=== PATIENT | female | born 1965 | race Caucasian/White ===

== ENCOUNTER → 2016-10-10 | Outpatient (CLI) | payer BC ==
[~2016-10-10] VITALS: Ht 174 cm; Wt 78.9 kg
== END ==
LOC: OPSV 14:30
DX: D50.9 Iron deficiency anemia, unspecified (principal)
CPT/HCPCS: 96365; J1756; J7050

== ENCOUNTER → 2016-10-11 | Outpatient (CLI) | payer BC ==
[~2016-10-11] VITALS: Ht 174 cm; Wt 78.9 kg
== END ==
LOC: OPSV 13:30
DX: D50.9 Iron deficiency anemia, unspecified (principal)
CPT/HCPCS: 96365; J1756; J7050

== ENCOUNTER → 2016-10-12 | Outpatient (CLI) | payer BC ==
[~2016-10-12] VITALS: Ht 172.7 cm; Wt 78.9 kg
== END ==
LOC: OPSV 14:00
DX: D50.9 Iron deficiency anemia, unspecified (principal); Z88.0 Allergy status to penicillin; Z88.5 Allergy status to narcotic agent
CPT/HCPCS: 96365; J1756; J7050

== ENCOUNTER → 2016-10-23 | Outpatient (CLI) | payer BC | LOC: OPSV 14:03 | DX: E86.0 Dehydration (principal) | CPT/HCPCS: 96360; 96361; J7120 ==

== ENCOUNTER → 2016-12-25 | Outpatient (CLI) | payer BC | LOC: RAD 11:19 | DX: M54.5 Low back pain (principal); R10.9 Unspecified abdominal pain; E86.0 Dehydration; M47.896 Other spondylosis, lumbar region; K59.00 Constipation, unspecified | CPT/HCPCS: 72110; 74022; 96360; 96361 ==

== ENCOUNTER → 2020-06-29 | Outpatient (CLI) | payer BC | LOC: OPSV 06-18 13:00 | DX: R55 Syncope and collapse (principal); E86.0 Dehydration | CPT/HCPCS: 96360 ==

== ENCOUNTER → 2020-07-06 | Outpatient (CLI) | payer BC ==
[2020-07-06 08:33] LABS: HEMOGLOBIN 14.8 gm/dl (12.3-15.3); RED BLOOD COUNT 5.29 M/UL (4.00-5.10); WHITE BLOOD COUNT 6.8 K/UL (4.5-11.0)
[2020-09-14 21:07] LABS: ALDOS/RENIN RATIO 2.4 (0.0-30.0); ALDOSTERONE 6.6 ng/dL (0.0-30.0)
== END ==
LOC: LAB 07:30
PROVIDERS: Nurse Practitioner
DX: R55 Syncope and collapse (principal); D64.9 Anemia, unspecified
CPT/HCPCS: 36415; 80053; 80061; 82088; 82533; 82607; 83540; 83930; 83935; 84244; 84300; 84443; 85027

== ENCOUNTER → 2020-10-28 | Outpatient (CLI) | payer BC | LOC: OPSV 11:57 | DX: E86.0 Dehydration (principal) | CPT/HCPCS: 96360 ==